=== PATIENT | male | born 1950 ===

== ENCOUNTER 2017-01-20 11:51 | Emergency (ER) | payer OTHER ==
[2017-01-20 12:02] VITALS: BP 150/88; PULSE 87; RESP 18; TEMP 98.5
--- NOTE | 2017-01-20 12:30 | ED ---
Skin/Abscess/FB HPI - General Chief complaint: Skin/Abscess/Foreign Body Stated complaint: poss spider bite left arm Time Seen by Provider: 01/20/17 12:13 Source: patient, RN notes reviewed Mode of arrival: ambulatory Limitations: no limitations - History of Present Illness Initial comments: 66-year-old male presents to the emergency Department chief complaint of left arm cellulitis. Patient states that he had a small area of infection that he drained himself and now he states some redness to the arm. Patient denies any fever chills cough cold runny nose with this. Patient denies any nausea vomiting. Patient denies any significant health history. Patient states that he had this redness to the arm so he was concerned. Patient denies any history of MRSA or any history of anything like this in the past. Patient states it is not currently having any other symptoms at this time. Patient denies any ALLERGIES to antibiotics. Patient denies any recent fever, chills, shortness of breath, chest pain, back pain, abdominal pain, nausea vomiting, numbness or tingling, dysuria or hematuria, constipation or diarrhea, headaches or visual changes, or any other current symptoms. - Related Data Home Medications Medication Instructions Recorded Confirmed Aspirin 81 mg PO DAILY 05/27/14 11/26/15 Multivitamin [Men's Multi-Vitamin] 1 each PO DAILY 05/27/14 11/26/15 Previous Rx's Medication Instructions Recorded Hydrocodone/Acetaminophen [[place] 1 each PO Q6HR PRN #20 tab 11/26/15 5-325] Orphenadrine [Norflex] 100 mg PO Q12H #10 tablet.er 11/26/15 predniSONE 50 mg PO DAILY #5 tab 11/26/15 Cephalexin [Keflex] 500 mg PO Q6HR #40 cap 01/20/17 Sulfamethox-Tmp 800-160Mg [Bactrim 2 each PO Q12HR #56 tab 01/20/17 DS 800-160 mg] Allergies Allergy/AdvReac Type Severity Reaction Status Date / Time No Known Allergies Allergy Verified 01/20/17 12:01 Review of Systems ROS Statement: Those systems with pertinent positive or pertinent negative responses have been documented in the HPI. ROS Other: All systems not noted in ROS Statement are negative. Past Medical History Past Medical History: No Reported History History of Any Multi-Drug Resistant Organisms: None Reported Past Surgical History: Back Surgery, Orthopedic Surgery Past Anesthesia/Blood Transfusion Reactions: No Reported Reaction Past Psychological History: No Psychological Hx Reported Smoking Status: Current every day smoker Past Alcohol Use History: Occasional Past Drug Use History: Marijuana - Past Family History Brother(s) Family Medical History: Cancer Sister(s) Family Medical History: Cancer General Exam - General Exam Comments Initial Comments: General: The patient is awake and alert, in no distress, and does not appear acutely ill. Neck: The neck is supple, there is no tenderness. Cardiovascular: There is a regular rate and rhythm. No murmur, rub or gallop is appreciated. Respiratory: Lungs are clear to auscultation, respirations are non-labored, breath sounds are equal. No wheezes, stridor, rales, or rhonchi. Musculoskeletal: Sensation intact with 2+ pulses at the left upper joint. Full range motion of left shoulder left elbow and left wrist. Patient does have a small abrasion to the left elbow with associated erythema and warmth to the left arm. There is some tenderness to palpation over the abrasion. Neurological: CN II-XII intact, There are no obvious motor or sensory deficits. Coordination appears grossly intact. Speech is normal. Skin: Skin is warm and dry and no rashes or lesions are noted. Psychiatric: Normal mood and affect. Limitations: no limitations Course Vital Signs 01/20/17 11:59 Temperature 98.5 F Pulse Rate 87 Respiratory 18 Rate Blood Pressure 150/88 O2 Sat by Pulse 97 Oximetry Medical Decision Making - Medical Decision Making 66-year-old male presents for what appears to be a left arm cellulitis. This tenderness does not appear to be area for drainage. At this time we did discuss with the patient that we could keep him for IV antibiotics and IV medications and see how his infection improves he however states he like to try on antibiotics at that he has not been on anything. He has no fever at this time vital signs are stable. He has not been on any outpatient antibiotics. We will give a shot of Ancef and start him on Keflex and Bactrim for home. We did discuss return parameters were discussed follow-up and all questions. Patient stated he understood and he is in agreement with this plan. At this time he will be discharged home. Disposition Clinical Impression: Left arm cellulitis Disposition: HOME SELF-CARE Condition: Stable Instructions: Cellulitis (ED) Additional Instructions: Please use medication as discussed. Please follow up with family doctor if symptoms have not improved over the next two days. Please return to the emergency room if your symptoms increase or worsen or for any other concerns. Prescriptions: Cephalexin [Keflex] 500 mg PO Q6HR #40 cap Sulfamethox-Tmp 800-160Mg [Bactrim DS 800-160 mg] 2 each PO Q12HR #56 tab Referrals: Yisel Lechuga MD [Primary Care Provider] - 1-2 days Time of Disposition: 12:30
[2017-01-20] MEDS ORDERED: ceFAZolin 1,000 MG VIAL IM STA (12:31)
== END 2017-01-20 12:52 | disposition home or self-care (01) ==
LOC: EC 11:51
DX: L03.114 Cellulitis of left upper limb (principal); F17.200 Nicotine dependence, unspecified, uncomplicated; Z79.82 Long term (current) use of aspirin; Z79.899 Other long term (current) drug therapy
CPT/HCPCS: 99283; 96372; J0690

== ENCOUNTER 2018-01-29 09:13 | Inpatient (IN) | payer MEDICARE, OTHER ==
[~2018-01-29 09:13] MED LIST: ATORVASTATIN 80 MG TAB ONE
[2018-01-29] MEDS ORDERED: NITROGLYCERIN SL TABS 0.4 MG TAB SUBLINGUAL STA (09:26)
[2018-01-29] MEDS ORDERED: SODIUM CHLORIDE 0.9% 1,000 ML IV STA ×3 (09:28→09:29)
[2018-01-29] MEDS ORDERED: ASPIRIN 81 MG PO STA ×2 (09:28→09:29)
[2018-01-29] MEDS ORDERED: NITROGLYCERIN SL TABS 0.4 MG TAB SUBLINGUAL PRN ×3 (09:28→10:30)
[2018-01-29] MEDS ORDERED: HEPARIN SODIUM,PORCINE 5,000 UNIT/ML 1 ML VIAL IV PRN (09:28)
[2018-01-29] MEDS ORDERED: HEPARIN SODIUM,PORCINE 5,000 UNIT/ML 1 ML VIAL IV ONE (09:28)
[2018-01-29] MEDS ORDERED: LIDOCAINE 1% INJ 10MG/ML (20 ML MDV) ONE (09:33)
--- NOTE | 2018-01-29 09:33 | ED ---
General Adult HPI - General Chief complaint: Chest Pain Stated complaint: Chest pain Time Seen by Provider: 01/29/18 09:28 Source: patient, RN notes reviewed, old records reviewed Mode of arrival: wheelchair Limitations: no limitations - History of Present Illness Initial comments: This is a 67-year-old male today presented ER for evaluation regarding chest pain patient does have history of smoking high blood pressure. No recent travel history, no recent sick contacts. Patient denies modifying factors for chest pain. - Related Data Home Medications Medication Instructions Recorded Confirmed Aspirin 81 mg PO DAILY 05/27/14 01/29/18 Multivitamin [Men's Multi-Vitamin] 1 tab PO DAILY 05/27/14 01/29/18 Allergies Allergy/AdvReac Type Severity Reaction Status Date / Time No Known Allergies Allergy Verified 01/29/18 09:18 Review of Systems ROS Statement: Those systems with pertinent positive or pertinent negative responses have been documented in the HPI. ROS Other: All systems not noted in ROS Statement are negative. Past Medical History Past Medical History: No Reported History History of Any Multi-Drug Resistant Organisms: None Reported Past Surgical History: Back Surgery, Orthopedic Surgery Past Anesthesia/Blood Transfusion Reactions: No Reported Reaction Past Psychological History: No Psychological Hx Reported Smoking Status: Current every day smoker Past Alcohol Use History: Occasional Past Drug Use History: Marijuana - Past Family History Brother(s) Family Medical History: Cancer Sister(s) Family Medical History: Cancer Son(s) Additional Family Medical History / Comment(s): Patient has one son with ALLERGIES. No daughters. General Exam Limitations: no limitations General appearance: alert, in no apparent distress, anxious Head exam: Present: atraumatic, normocephalic, normal inspection Eye exam: Present: normal appearance, PERRL, EOMI. Absent: scleral icterus, conjunctival injection, periorbital swelling ENT exam: Present: normal exam, mucous membranes moist Neck exam: Present: normal inspection. Absent: tenderness, meningismus, lymphadenopathy Respiratory exam: Present: normal lung sounds bilaterally. Absent: respiratory distress, wheezes, rales, rhonchi, stridor Cardiovascular Exam: Present: regular rate, normal rhythm, normal heart sounds. Absent: systolic murmur, diastolic murmur, rubs, gallop, clicks GI/Abdominal exam: Present: soft, normal bowel sounds. Absent: distended, tenderness, guarding, rebound, rigid Extremities exam: Present: normal inspection, full ROM, normal capillary refill. Absent: tenderness, pedal edema, joint swelling, calf tenderness Back exam: Present: normal inspection Neurological exam: Present: alert, oriented X3, CN II-XII intact Psychiatric exam: Present: normal affect, normal mood Skin exam: Present: warm, dry, intact, normal color. Absent: rash Course Vital Signs 01/29/18 01/29/18 01/29/18 09:16 09:33 09:37 Temperature 97.8 F Pulse Rate 68 97 87 Respiratory 18 18 18 Rate Blood Pressure 179/98 172/106 197/106 O2 Sat by Pulse 99 98 Oximetry - Reevaluation(s) Reevaluation #1: STEMI paged on patient arrival to emergency room. Cardiology and cath team is evaluating patient in emergency room EKG Findings - EKG Comments: EKG Findings:: EKG shows ST elevated AR, rate of 67, NM 202, QRS 146, QTc 429 Medical Decision Making - Medical Decision Making 67 male the ER for evaluation. Patient today for positive ST elevated AR, taken to [facility] upon presentation to emergency room. - Lab Data Result diagrams: 01/30/18 06:11 01/30/18 06:11 Lab Results 01/29/18 01/29/18 01/29/18 Range/Units 09:24 09:24 09:24 WBC 10.6 (3.8-10.6) k/uL RBC 5.50 (4.30-5.90) m/uL Hgb 17.0 (13.0-17.5) gm/dL Hct 51.8 (39.0-53.0) % MCV 94.3 (80.0-100.0) fL MCH 31.0 (25.0-35.0) pg MCHC 32.9 (31.0-37.0) g/dL RDW 14.2 (11.5-15.5) % Plt Count 246 (150-450) k/uL Neutrophils % 57 % Lymphocytes % 29 % Monocytes % 6 % Eosinophils % 5 % Basophils % 1 % Neutrophils # 6.0 (1.3-7.7) k/uL Lymphocytes # 3.0 (1.0-4.8) k/uL Monocytes # 0.6 (0-1.0) k/uL Eosinophils # 0.5 (0-0.7) k/uL Basophils # 0.1 (0-0.2) k/uL PT 9.7 (9.0-12.0) sec INR 1.0 (<1.2) APTT 22.0 (22.0-30.0) sec Sodium 141 (137-145) mmol/L Potassium 4.3 (3.5-5.1) mmol/L Chloride 107 (98-107) mmol/L Carbon Dioxide 23 (22-30) mmol/L Anion Gap 11 mmol/L BUN 16 (9-20) mg/dL Creatinine 0.95 (0.66-1.25) mg/dL Est GFR (CKD-EPI)AfAm >90 (>60 ml/min/1.73 sqM) Est GFR (CKD-EPI)NonAf 84 (>60 ml/min/1.73 sqM) Glucose 125 H (74-99) mg/dL Calcium 9.8 (8.4-10.2) mg/dL Total Bilirubin 0.4 (0.2-1.3) mg/dL AST 23 (17-59) U/L ALT 31 (21-72) U/L Alkaline Phosphatase 72 (38-126) U/L Total Creatine Kinase (55-170) U/L CK-MB (CK-2) (0.0-2.4) ng/mL CK-MB (CK-2) Rel Index Troponin I (0.000-0.034) ng/mL Total Protein 7.2 (6.3-8.2) g/dL Albumin 4.4 (3.5-5.0) g/dL 01/29/18 Range/Units 09:24 WBC (3.8-10.6) k/uL RBC (4.30-5.90) m/uL Hgb (13.0-17.5) gm/dL Hct (39.0-53.0) % MCV (80.0-100.0) fL MCH (25.0-35.0) pg MCHC (31.0-37.0) g/dL RDW (11.5-15.5) % Plt Count (150-450) k/uL Neutrophils % % Lymphocytes % % Monocytes % % Eosinophils % % Basophils % % Neutrophils # (1.3-7.7) k/uL Lymphocytes # (1.0-4.8) k/uL Monocytes # (0-1.0) k/uL Eosinophils # (0-0.7) k/uL Basophils # (0-0.2) k/uL PT (9.0-12.0) sec INR (<1.2) APTT (22.0-30.0) sec Sodium (137-145) mmol/L Potassium (3.5-5.1) mmol/L Chloride (98-107) mmol/L Carbon Dioxide (22-30) mmol/L Anion Gap mmol/L BUN (9-20) mg/dL Creatinine (0.66-1.25) mg/dL Est GFR (CKD-EPI)AfAm (>60 ml/min/1.73 sqM) Est GFR (CKD-EPI)NonAf (>60 ml/min/1.73 sqM) Glucose (74-99) mg/dL Calcium (8.4-10.2) mg/dL Total Bilirubin (0.2-1.3) mg/dL AST (17-59) U/L ALT (21-72) U/L Alkaline Phosphatase (38-126) U/L Total Creatine Kinase 101 (55-170) U/L CK-MB (CK-2) 2.2 (0.0-2.4) ng/mL CK-MB (CK-2) Rel Index 2.2 Troponin I 0.031 (0.000-0.034) ng/mL Total Protein (6.3-8.2) g/dL Albumin (3.5-5.0) g/dL - Radiology Data Radiology results: report reviewed (Chest x-rays negative for acute disease), image reviewed Critical Care Time Critical Care Time: Yes Total Critical Care Time: 31 Disposition Clinical Impression: ST elevation myocardial infarction (STEMI) Disposition: ADMITTED IP TO THIS HOSP Condition: Serious Is patient prescribed a controlled substance at d/c from ED?: No
[2018-01-29] MEDS: HEPARIN SOD,PORK IN 0.45% NACL 25,000 UNIT in 0.45% NACL 1 500ML.BAG IV SCH (09:38)
[2018-01-29] MEDS ORDERED: VERAPAMIL 2.5 MG/ML 2 ML AMP ONE (09:40)
[2018-01-29] MEDS ORDERED: MIDAZOLAM 2 MG/2 ML VIAL ONE (09:40)
[2018-01-29] MEDS ORDERED: HEPARIN SODIUM 1,000 UN/ML (10ML VL) ONE (09:40)
--- NOTE | 2018-01-29 09:44 | XR ---
EXAMINATION TYPE: XR chest 1V portable DATE OF EXAM: 01/29/2018 COMPARISON: NONE HISTORY: Myocardial infarction, chest pain TECHNIQUE: Single frontal view of the chest is obtained. FINDINGS: Patient is rotated, technique somewhat apical lordotic, and there are overlying leads. Asce nding aorta appears prominently possibly due to technique. There is no focal air space opacity, pleur al effusion, or pneumothorax seen. The cardiac silhouette size is within normal limits. The osseou s structures are intact. IMPRESSION: Above findings may be at least in part technical, consider follow-up PA and lateral ches t x-ray when patient is clinically stable. No definite acute abnormality.
[2018-01-29 09:48] LABS: Basophils # (A) 0.1 k/uL (0-0.2); Basophils % (A) 1 %; Eosinophils # (A) 0.5 k/uL (0-0.7); Eosinophils % (A) 5 %; HCT 51.8 % (39.0-53.0); Lymphocytes % (A) 29 %; MCHC 32.9 g/dL (31.0-37.0); MCV 94.3 fL (80.0-100.0); Mean Platelet Volume 7.7; Monocytes # (A) 0.6 k/uL (0-1.0); Monocytes % (A) 6 %; Neutrophils % (A) 57 %; Platelet Count 246 k/uL (150-450); RDW 14.2 % (11.5-15.5); WBC 10.6 k/uL (3.8-10.6)
[2018-01-29] MEDS ORDERED: LIDOCAINE 1% (PF) 10MG/ML VIAL SQ ONE (09:54)
[2018-01-29] MEDS ORDERED: MIDAZOLAM 2 MG/2 ML VIAL IVP ONE (09:55)
[2018-01-29] MEDS ORDERED: SODIUM CHLORIDE 0.9% 1,000 ML IV ONE (09:56)
[2018-01-29] MEDS: VERAPAMIL SYRINGE (5 MG/10 ML) INTRAARTER ONE ×2 (09:58→10:19)
[2018-01-29 10:00] LABS: ALT 31 U/L (21-72); AST 23 U/L (17-59); Albumin 4.4 g/dL (3.5-5.0); Alkaline Phosphatase 72 U/L (38-126); Anion Gap 11 mmol/L; Blood Urea Nitrogen 16 mg/dL (9-20); Calcium 9.8 mg/dL (8.4-10.2); Carbon Dioxide 23 mmol/L (22-30); Chloride 107 mmol/L (98-107); Glucose 125 mg/dL (74-99); Potassium 4.3 mmol/L (3.5-5.1); Sodium 141 mmol/L (137-145); Total Bilirubin 0.4 mg/dL (0.2-1.3); Total Protein 7.2 g/dL (6.3-8.2)
[2018-01-29] MEDS ORDERED: BIVALIRUDIN 250 MG in SODIUM CHLORIDE 0.9% 50 ML IV ONE (10:04)
[2018-01-29] MEDS ORDERED: BIVALIRUDIN BOLUS 250 MG/50 ML IV ONE (10:04)
[2018-01-29 10:07] LABS: Prothrombin Time 9.7 sec (9.0-12.0)
[2018-01-29] MEDS: NITROGLYCERIN 1000MCG/10ML SYRINGE INTRACORON ONE ×2 (10:12→10:18)
[2018-01-29] MEDS ORDERED: CLOPIDOGREL 75 MG TAB ONE (10:15)
[2018-01-29] MEDS ORDERED: CLOPIDOGREL 75 MG TAB PO ONE (10:19)
[2018-01-29] MEDS ORDERED: IOPAMIDOL-370 125ML BTL INJ ONE (10:20)
[2018-01-29] MEDS ORDERED: SODIUM CHLORIDE 0.9% 1,000 ML IV SCH (10:30)
[2018-01-29] MEDS ORDERED: RX INFO: IV CONTRAST WAS GIVEN 1 EACH MISC MISCELLANE PRN (10:30)
[2018-01-29] MEDS ORDERED: MAG HYDROX/AL HYDROX/SIMETH 30 ML CUP PO PRN (10:30)
[2018-01-29] MEDS ORDERED: ATROPINE SULFATE 0.1 MG/ML 10ML SYRINGE IV PRN (10:30)
[2018-01-29] MEDS ORDERED: ZOLPIDEM 5 MG TAB PO PRN (10:30)
[2018-01-29 10:31] LABS: Creatine Kinase MB 2.2 ng/mL (0.0-2.4); Troponin I 0.031 ng/mL (0.000-0.034)
--- NOTE | 2018-01-29 10:42 | P.CRDCN ---
History of Present Illness Consult date: 01/29/18 Chief complaint: chest discomfort History of present illness: This is a pleasant 67-year-old gentleman with no significant past medical history of diabetes or hypertension or dyslipidemia but significant history of smoking presented to the emergency room here at [facility] complaining of chest discomfort. 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 The discomfort was severe enough and the patient drove himself to the emergency room. In the ER the patient was diagnosed with acute anterior ST patient myocardial infarction. Subsequently he was taken emergently to the cardiac labeler where he underwent a heart catheterization and was found to have a plaque rupture involving the mid LAD with a lesion appears to be in the range of 80%. The patient underwent successful stenting of the LAD using a drug -eluting stent with a good angiographic results and without any complication from the procedure was performed from the right radial artery. By the end of the procedure the patient was pain-free. He did have some reperfusion changes throughout the procedure but he was maintaining normal sinus mechanism. In terms of past medical history the patient does not have any hypertension, dyslipidemia, or diabetes. He did undergo back surgery in the past. No other lung or cardiac surgeries before. The patient does to smoke about one pack of cigarettes every day. Past Medical History Past Medical History: No Reported History History of Any Multi-Drug Resistant Organisms: None Reported Past Surgical History: Back Surgery, Orthopedic Surgery Past Anesthesia/Blood Transfusion Reactions: No Reported Reaction Past Psychological History: No Psychological Hx Reported Smoking Status: Current every day smoker Past Alcohol Use History: Occasional Past Drug Use History: Marijuana - Past Family History Brother(s) Family Medical History: Cancer Sister(s) Family Medical History: Cancer Medications and Allergies Home Medications Medication Instructions Recorded Confirmed Type Aspirin 81 mg PO DAILY 05/27/14 11/26/15 History Multivitamin [Men's Multi-Vitamin] 1 each PO DAILY 05/27/14 11/26/15 History Hydrocodone/Acetaminophen [[place] 1 each PO Q6HR PRN #20 tab 11/26/15 Rx 5-325] Orphenadrine [Norflex] 100 mg PO Q12H #10 tablet.er 11/26/15 Rx predniSONE 50 mg PO DAILY #5 tab 11/26/15 Rx Cephalexin [Keflex] 500 mg PO Q6HR #40 cap 01/20/17 Rx Sulfamethox-Tmp 800-160Mg [Bactrim 2 each PO Q12HR #56 tab 01/20/17 Rx DS 800-160 mg] Allergies Allergy/AdvReac Type Severity Reaction Status Date / Time No Known Allergies Allergy Verified 01/29/18 09:18 Physical Exam Vitals: Vital Signs Temp Pulse Resp BP Pulse Ox 01/29/18 09:37 87 18 197/106 01/29/18 09:33 97 18 172/106 98 01/29/18 09:16 97.8 F 68 18 179/98 99 Intake and Output 01/28/18 01/29/18 01/29/18 22:59 06:59 14:59 Intake Total 150 Balance 150 Intake: IV 150 Other: Weight 78.018 kg - Constitutional General appearance: no acute distress - Respiratory Respiratory: bilateral: CTA - Cardiovascular Rhythm: regular Heart sounds: normal: S1, S2 Results 01/29/18 09:24 01/29/18 09:24 Cardiac Enzymes 01/29/18 01/29/18 Range/Units 09:24 09:24 AST 23 (17-59) U/L CK-MB (CK-2) 2.2 (0.0-2.4) ng/mL Troponin I 0.031 (0.000-0.034) ng/mL Coagulation 01/29/18 Range/Units 09:24 PT 9.7 (9.0-12.0) sec APTT 22.0 (22.0-30.0) sec CBC 01/29/18 Range/Units 09:24 WBC 10.6 (3.8-10.6) k/uL RBC 5.50 (4.30-5.90) m/uL Hgb 17.0 (13.0-17.5) gm/dL Hct 51.8 (39.0-53.0) % Plt Count 246 (150-450) k/uL Comprehensive Metabolic Panel 01/29/18 Range/Units 09:24 Sodium 141 (137-145) mmol/L Potassium 4.3 (3.5-5.1) mmol/L Chloride 107 (98-107) mmol/L Carbon Dioxide 23 (22-30) mmol/L BUN 16 (9-20) mg/dL Creatinine 0.95 (0.66-1.25) mg/dL Glucose 125 H (74-99) mg/dL Calcium 9.8 (8.4-10.2) mg/dL AST 23 (17-59) U/L ALT 31 (21-72) U/L Alkaline Phosphatase 72 (38-126) U/L Total Protein 7.2 (6.3-8.2) g/dL Albumin 4.4 (3.5-5.0) g/dL Current Medications Generic Name Dose Route Start Last Admin Trade Name Freq PRN Reason Stop Dose Admin Al Hydroxide/Mg Hydroxide 30 ml 01/29/18 10:30 Maalox PO Q4HR PRN Heartburn Aspirin 325 mg 01/30/18 09:00 Aspirin PO DAILY [facility] Aspirin 325 mg 01/30/18 09:00 Aspirin PO DAILY [facility] Atorvastatin Calcium 80 mg 01/30/18 09:00 Lipitor PO DAILY [facility] Atropine Sulfate 0.5 mg 01/29/18 10:30 Atropine IV ONCE PRN Symptomatic Bradycardia Clopidogrel Bisulfate 75 mg 01/30/18 10:31 Plavix PO DAILY [facility] Heparin Sodium (Porcine) 0 unit 01/29/18 09:28 Heparin IV Q6HR PRN Low PTT Protocol Heparin Sodium/Sodium Chloride 500 mls @ 18.72 mls/hr 01/29/18 09:30 09:38 25,000 unit/ Sodium Chloride IV 12 units/kg/hr .Q24H MONTSE 18.72 mls/hr Administration Protocol 12 UNITS/KG/HR Sodium Chloride 1,000 mls @ 100 mls/hr 01/29/18 09:28 Saline 0.9% IV 01/29/18 19:27 .Q10H STA Sodium Chloride 1,000 mls @ 100 mls/hr 01/29/18 10:30 Saline 0.9% IV 01/29/18 16:31 .Q10H [facility] Lisinopril 2.5 mg 01/30/18 09:00 Zestril PO DAILY [facility] Metoprolol Tartrate 25 mg 01/29/18 21:00 Lopressor PO BID [facility] Metoprolol Tartrate 25 mg 01/29/18 21:00 Lopressor PO BID [facility] Miscellaneous Information 1 each 01/29/18 10:30 Rx Info: Iv Contrast Was Given MISCELLANE 01/31/18 10:30 DAILY PRN Per Protocol Nitroglycerin 0.4 mg 01/29/18 09:28 Nitrostat SUBLINGUAL Q5M PRN Chest Pain Nitroglycerin 0.4 mg 01/29/18 10:30 Nitrostat SUBLINGUAL Q5M PRN Chest Pain Zolpidem Tartrate 5 mg 01/29/18 10:30 Ambien PO HS PRN Insomnia Intake and Output 01/28/18 01/29/18 01/29/18 22:59 06:59 14:59 Intake Total 150 Balance 150 Intake: IV 150 Other: Weight 78.018 kg Patient Weight 01/30/18 06:59 Weight 78.018 kg 01/29/18 09:24 01/29/18 09:24 Assessment and Plan Assessment: Assessment #[address] patient myocardial infarction. #2 status post a stenting of the LAD using drug-eluting stent #3 significant history of smoking Plan #1 dual antiplatelet therapy #2 high intensity statin #3 anti-ischemic medication #4 echocardiogram was Doppler #5 follow-up with the patient. Thank you for allowing us participate in the patient's care and we'll continue following up with him
--- NOTE | 2018-01-29 11:18 | LTR ---
January 29, 2018 Re: Rogelio Melara Dear Dr. Lechuga. Mr. Rogelio Melara presented to [facility] with chest discomfort and was diagnosed with acute anterior ST-elevation myocardial infarction. He underwent an emergent heart catheterization and was found to have a plaque rupture involving the mid LAD with a lesion around 80% to 90%. He underwent successful stenting of the mid LAD with good angiographic results and without any complication. I want to thank you for allowing me to participate in his care and please do not hesitate to call if you have any question or concern. Sincerely, Lamberto Mahoney MD MMLAURAL / DINAN: [id number] /
--- NOTE | 2018-01-29 11:30 | CC ---
CARDIAC CATHETERIZATION REPORT DATE OF SERVICE: 01/29/2018 PERFORMING PHYSICIAN: Lamberto Mahoney MD, [employer]. PROCEDURE PERFORMED: 1. Selective right and left coronary angiogram. 2. Left heart catheterization. 3. Successful stenting of the mid LAD using 2.5 x 18 mm Xience BRIDGETT with good angiographic results. SEDATION: Moderate with sedation length of 28 minutes. Door to balloon was 58 minutes. PROCEDURE DESCRIPTION: After obtaining an informed consent, the patient was brought to cardiac laborer powerhouse. The right radial artery was cannulated using micropuncture technique, and the micropuncture wire passed easily, then I placed a 6-Tamazight sheath in the right radial artery. After that, I did start anticoagulation with Angiomax. I did selective right and left coronary angiogram using JR4 and JL3.5 catheters. Left heart catheterization was performed using JR4 catheter which flipped into the LV and then I did pullback across the aortic valve. After that, I did intervene on the LAD. Please see a separate paragraph for that. SELECTIVE CORONARY ANGIOGRAM: 1. The RCA is a large caliber vessel and it is a dominant vessel. The RCA has mild disease only in the midportion. It distally bifurcates into PDA and branches, both are angiographically normal. 2. The left main has mild disease only. It bifurcates into the circumflex and left anterior descending artery. 3. The left circumflex is a large caliber vessel and it is a nondominant vessel. The proximal circumflex has mild disease only. The mid circumflex appeared to have mild disease only and gives rise into a large OM branch which has mild disease in the proximal portion and the circumflex continue after that as a small-caliber vessel in the AV groove. 4. The LAD: The proximal LAD is angiographically normal and gives rise into a large diagonal branch which appeared to have mild disease only. The mid LAD by the bifurcation of second diagonal branch has a lesion, appeared to be in the range of 80% to 90%. It seems that there is a plaque rupture and thrombus formation. The LAD distally appeared to be angiographically normal. HEMODYNAMICS: The left ventricular end-diastolic pressure was about 12 mmHg and no significant gradient was seen across the aortic valve. PCI of the LAD anticoagulation was initiated using Angiomax. Subsequently, I did engage the left main using JL3.5 guide. A whisper wire was used to wire the LAD. After that, I did PTCA ballooning of the LAD in the midportion using 2.0 x 12 mm balloon before I deployed 2.5 x 18 mm Xience BRIDGETT where the stent was positioned under fluoroscopy guidance and deployed under its nominal pressure. The following angiogram showed good angiographic results. The procedure was completed without any complication. CONCLUSION: 1. Acute anterior ST-elevation myocardial infarction. 2. Mild disease involving the right coronary artery. 3. Mild disease involving the left main coronary artery. 4. Mild disease involving the left circumflex coronary system. 5. Plaque rupture and thrombus formation involving the mid LAD with a lesion about 80- 90%. 6. Successful stenting of the LAD as described above. POSTPROCEDURE MANAGEMENT: 1. Dual anti-platelet therapy. 2. Risk factors modifications. 3. Obtain an echocardiogram with Doppler. 4. Follow up with the patient. MAGGIE / DINAN: [id number] /
--- NOTE | 2018-01-29 13:30 | P.HPIM ---
History of Present Illness H&P Date: 01/29/18 Chief Complaint: Chest pain This is a 67-year-old male patient who has been a patient of Dr. Martines in the past but most recently went to the clinic for care. He has no significant past medical history except for tobacco use and dependence. Patient states that he woke up and shortly after that developed chest pain that was pressure across his chest along with nausea vomiting and shortness of breath. He states he got in the car and drove himself here but had to stop for gas and was vomiting at the gas station. He came in to [facility] emergency [facility] for evaluation was found to have an acute anterior ST elevated myocardial infarction. He subsequently went for heart catheterization with Dr. jaramillo that showed plaque rupture in the mid LAD and is status post stent placement. Echocardiogram is pending. Patient has been started on aspirin, Lipitor, Plavix, lisinopril and Lopressor. Patient is seen in the extended care unit awaiting a bed in the ICU. Review of Systems All systems: negative Constitutional: Denies chills, Denies fever, Denies poor appetite, Denies weight loss Eyes: denies blurred vision, denies pain Ears, nose, mouth and throat: Denies headache, Denies sore throat Cardiovascular: Reports chest pain, Reports shortness of breath, Denies edema, Denies leg edema, Denies lightheadedness, Denies syncope Respiratory: Denies cough, Denies cough with sputum, Denies dyspnea, Denies excessive sputum, Denies hemoptysis, Denies home oxygen, Denies wheezing Gastrointestinal: Reports nausea, Reports vomiting, Denies abdominal pain, Denies diarrhea Genitourinary: Denies dysuria Musculoskeletal: Denies myalgias Integumentary: Denies pruritus, Denies rash Neurological: Denies numbness, Denies weakness Psychiatric: Denies anxiety, Denies depression Endocrine: Denies fatigue, Denies weight change Past Medical History Past Medical History: No Reported History History of Any Multi-Drug Resistant Organisms: None Reported Past Surgical History: Back Surgery, Orthopedic Surgery Additional Past Surgical History / Comment(s): Heart catheterization 01/29/2018 status post stenting of the LAD Past Anesthesia/Blood Transfusion Reactions: No Reported Reaction Past Psychological History: No Psychological Hx Reported Smoking Status: Current every day smoker Past Alcohol Use History: Occasional Additional Past Alcohol Use History / Comment(s): Patient is a smoker one pack per day for more than 30 years. He smokes marijuana occasionally. He denies any alcohol abuse. No other street drug use. He is retired but is very active doing woodwork and he cares for his own lawn. Past Drug Use History: Marijuana - Past Family History Brother(s) Family Medical History: Cancer Additional Family Medical History / Comment(s): She has 2 brothers and one has history of testicular cancer. One has had back surgery. Sister(s) Family Medical History: Cancer Additional Family Medical History / Comment(s): Patient has 1 sister with no major medical problems. Son(s) Additional Family Medical History / Comment(s): Patient has one son with ALLERGIES. No daughters. Medications and Allergies Home Medications Medication Instructions Recorded Confirmed Type Aspirin 81 mg PO DAILY 05/27/14 01/29/18 History Multivitamin [Men's Multi-Vitamin] 1 tab PO DAILY 05/27/14 01/29/18 History Allergies Allergy/AdvReac Type Severity Reaction Status Date / Time No Known Allergies Allergy Verified 01/29/18 09:18 Physical Exam Vitals: Vital Signs Temp Pulse Resp BP BP Pulse Ox 01/29/18 12:43 16 146/83 98 01/29/18 11:15 141/82 01/29/18 11:00 142/82 01/29/18 10:45 16 141/86 01/29/18 10:44 16 148/87 98 01/29/18 09:37 87 18 197/106 01/29/18 09:33 97 18 172/106 98 01/29/18 09:16 97.8 F 68 18 179/98 99 Intake and Output 01/28/18 01/29/18 01/29/18 22:59 06:59 14:59 Intake Total 165 Balance 165 Intake: IV 165 Other: Weight 78.018 kg Gen: This is a 67-year-old male. He is on the stretcher and appears to be comfortable and in no acute distress. Patient currently denies any chest pain. HEENT: Head is atraumatic, normocephalic. Pupils equal, round. Sclerae is anicteric. Conjunctiva pink. Mucous members of the mouth are somewhat dry. NECK: Supple. No JVD. No lymphadenopathy. No thyromegaly. LUNGS: Clear to auscultation. No wheezes or rhonchi. No intercostal retractions. HEART: Regular rate and rhythm. No murmur. ABDOMEN: Soft. Bowel sounds are present. No masses. No tenderness. EXTREMITIES: No pedal edema. No calf tenderness. Dorsalis pedis is +2 bilaterally. NEUROLOGICAL: Patient is awake, alert and oriented x3. Cranial nerves 2 through 12 are grossly intact. Results CBC & Chem 7: 01/29/18 09:24 01/29/18 09:24 Labs: Abnormal Lab Results - Last 24 Hours (Table) 01/29/18 Range/Units 09:24 Glucose 125 H (74-99) mg/dL Thrombosis Risk Factor Assmnt - DVT/VTE Prophylaxis DVT/VTE Prophylaxis: Pharmacologic Prophylaxis ordered Assessment and Plan Plan: 1. Acute anterior wall ST elevated myocardial infarction status post stenting of the LAD. Cardiology consult appreciated. Continue aspirin, Lipitor, Plavix , lisinopril, Lopressor. Patient to be transferred to the intensive care unit. 2. History of previous back surgery, stable. 3. Tobacco use and dependence. Patient is planning to quit smoking. 4. Occasional marijuana use, stable. 5. Hypertension previously undiagnosed. Patient started on lisinopril and Lopressor. 6. Hyperlipidemia. Patient started on statin. 7. DVT and GI prophylaxis prophylaxis. Patient will be admitted to the hospital for a minimum of 2 night stay. Discharge plan: Return home Impression and plan of care have been directed as dictated by the signing physician. Gissel Blackburn nurse practitioner acting as scribe for signing physician.
[2018-01-29 16:11] LABS: Creatine Kinase MB 24.1 ng/mL (0.0-2.4); Troponin I 3.57 ng/mL (0.000-0.034)
[2018-01-29] MEDS: METOPROLOL TARTRATE 25 MG TAB PO SCH (19:46)
[2018-01-29 20:34] VITALS: BMI 26.9
[2018-01-29] MEDS ORDERED: METOPROLOL TARTRATE 25 MG TAB PO SCH (21:00)
[2018-01-30 06:34] LABS: Basophils # (A) 0.1 k/uL (0-0.2); Basophils % (A) 1 %; Eosinophils # (A) 0.5 k/uL (0-0.7); Eosinophils % (A) 5 %; HCT 49.1 % (39.0-53.0); Lymphocytes # (A) 2.7 k/uL (1.0-4.8); Lymphocytes % (A) 23 %; MCH 30.5 pg (25.0-35.0); MCHC 32.6 g/dL (31.0-37.0); MCV 93.5 fL (80.0-100.0); Mean Platelet Volume 7.9; Monocytes # (A) 0.5 k/uL (0-1.0); Monocytes % (A) 5 %; Neutrophils # (A) 7.7 k/uL (1.3-7.7); Neutrophils % (A) 66 %; Platelet Count 213 k/uL (150-450); RBC 5.25 m/uL (4.30-5.90); RDW 14.2 % (11.5-15.5); WBC 11.7 k/uL (3.8-10.6)
[2018-01-30 06:40] LABS: Partial Thromboplastin Time 23.7 sec (22.0-30.0); Prothrombin Time 9.9 sec (9.0-12.0)
[2018-01-30 06:48] LABS: ALT 32 U/L (21-72); AST 46 U/L (17-59); Albumin 3.6 g/dL (3.5-5.0); Alkaline Phosphatase 58 U/L (38-126); Anion Gap 4 mmol/L; Blood Urea Nitrogen 11 mg/dL (9-20); Calcium 9.3 mg/dL (8.4-10.2); Carbon Dioxide 26 mmol/L (22-30); Chloride 110 mmol/L (98-107); Cholesterol 214 mg/dL (<200); Glucose 96 mg/dL (74-99); HDL Cholesterol 49 mg/dL (40-60); LDL Cholesterol,Calculated 133 mg/dL (0-99); Lipase 59 U/L (23-300); Magnesium 1.8 mg/dL (1.6-2.3); Potassium 4.4 mmol/L (3.5-5.1); Sodium 140 mmol/L (137-145); Total Bilirubin 0.6 mg/dL (0.2-1.3); Total Protein 6.1 g/dL (6.3-8.2); Triglycerides 159 mg/dL (<150)
[2018-01-30] MEDS: CLOPIDOGREL 75 MG TAB PO SCH (08:12)
[2018-01-30] MEDS: ASPIRIN 325 MG TAB PO SCH (08:12)
[2018-01-30] MEDS: ATORVASTATIN 80 MG TAB PO SCH (08:14)
[2018-01-30] MEDS: METOPROLOL TARTRATE 25 MG TAB PO SCH ×2 (08:15→20:27)
[2018-01-30] MEDS: LISINOPRIL 2.5 MG TAB PO SCH (08:15)
[2018-01-30] MEDS: HEPARIN SOD,PORK IN 0.45% NACL 25,000 UNIT in 0.45% NACL 1 500ML.BAG IV SCH (08:20)
[2018-01-30] MEDS ORDERED: ASPIRIN 325 MG TAB PO SCH (09:00)
--- NOTE | 2018-01-30 10:22 | ECHOF ---
Referral Reason:STEMI MEASUREMENTS -------- HEIGHT: 170.2 cm WEIGHT: 78.0 kg BP: 148/87 IVSd: 1.4 cm (0.6 - 1.1) LVIDd: 3.2 cm (3.9 - 5.3) LVPWd: 1.3 cm (0.6 - 1.1) IVSs: 1.3 cm LVIDs: 2.0 cm LVPWs: 1.1 cm LAESV Index (A-L): 25.44 ml/m Ao Diam: 3.6 cm (2.0 - 3.7) AV Cusp: 1.4 cm (1.5 - 2.6) LA Diam: 3.0 cm (2.7 - 3.8) MV E Joshua: 0.68 m/s MV DecT: 255 ms MV A Joshua: 0.91 m/s MV E/A Ratio: 0.75 RAP: 5.00 mmHg RVSP: 11.66 mmHg FINDINGS -------- Sinus rhythm. This was a technically adequate study. The left ventricular size is normal. There is mild concentric left ventricular hypertrophy. Overa ll left ventricular systolic function is mildly impaired with, an EF between 45 - 50 %. Apical Hypo kinesis. The right ventricle is normal in size and function. Normal LA size by volume 22+/-6 ml/m2. The right atrium is normal in size. Aortic valve is trileaflet and is mildly thickened. There is no evidence of aortic regurgitation. There is no evidence of aortic stenosis. The mitral valve leaflets are mildly thickened. There is trace to mild mitral regurgitation. Trace tricuspid regurgitation present. Right ventricular systolic pressure is normal at < 35 mmHg. There is no evidence of pulmonary hypertension. The pulmonic valve was not well visualized. The aortic root size is normal. Normal inferior vena cava with normal inspiratory collapse consistent with estimated right atrial pre ssure of 5 mmHg. There is no pericardial effusion. CONCLUSIONS -------- 1. Sinus rhythm. 2. This was a technically adequate study. 3. The left ventricular size is normal. 4. There is mild concentric left ventricular hypertrophy. 5. Overall left ventricular systolic function is mildly impaired with, an EF between 45 - 50 %. 6. Apical Hypokinesis. 7. Normal LA size by volume 22+/-6 ml/m2. 8. Aortic valve is trileaflet and is mildly thickened. 9. The mitral valve leaflets are mildly thickened. 10. There is trace to mild mitral regurgitation. 11. Trace tricuspid regurgitation present. 12. Right ventricular systolic pressure is normal at < 35 mmHg. 13. There is no evidence of pulmonary hypertension. 14. The pulmonic valve was not well visualized. 15. The aortic root size is normal. 16. There is no pericardial effusion. HAND SHOE CUTTER: Robert Lorenzana RDCS
--- NOTE | 2018-01-30 12:36 | P.PN ---
Subjective Progress Note Date: 01/30/18 Principal diagnosis: CAD and status post PCI This is a pleasant 67-year-old gentleman with no significant past medical history of diabetes or hypertension or dyslipidemia but significant history of smoking presented to the emergency room here at [facility] complaining of chest discomfort. 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 The discomfort was severe enough and the patient drove himself to the emergency room. In the ER the patient was diagnosed with acute anterior ST patient myocardial infarction. Subsequently he was taken emergently to the cardiac lab systems analyst where he underwent a heart catheterization and was found to have a plaque rupture involving the mid LAD with a lesion appears to be in the range of 80%. The patient underwent successful stenting of the LAD using a drug -eluting stent with a good angiographic results and without any complication from the procedure was performed from the right radial artery. By the end of the procedure the patient was pain-free. He did have some reperfusion changes throughout the procedure but he was maintaining normal sinus mechanism. On follow-up with the patient today, he denies having any chest pain or discomfort or shortness of breath. He does have good right radial pulse. The echocardiogram revealed mildly impaired LV function with an ejection fraction of 45%.he is on dual antiplatelet therapy along with high intensity statin. Objective - Vital Signs Vital signs: Vital Signs Temp 98.0 F 01/30/18 08:08 Pulse 72 01/30/18 08:08 Resp 16 01/30/18 08:08 BP 133/89 01/30/18 08:08 Pulse Ox 96 01/30/18 09:28 Intake & Output 01/29/18 01/30/18 01/30/18 18:59 06:59 18:59 Intake Total 890 520 240 Balance 890 520 240 Weight 78.018 kg 80.1 kg Intake: IV 890 Sodium Chloride 0.9% 1, 725 000 ml @ 100 mls/hr IV . Q10H [facility] Rx#:[id number] Intake, IV Titration 100 Amount Sodium Chloride 0.9% 1, 100 000 ml @ 100 mls/hr IV . Q10H [facility] Rx#:[id number] Oral 420 240 Other: Voiding Method Toilet Toilet # Voids 1 1 - Constitutional General appearance: Present: no acute distress - Respiratory Respiratory: bilateral: CTA - Cardiovascular Rhythm: regular Heart sounds: normal: S1, S2 - Labs CBC & Chem 7: 01/30/18 06:11 01/30/18 06:11 Labs: Abnormal Lab Results - Last 24 Hours (Table) 01/29/18 01/30/18 01/30/18 Range/Units 15:25 06:11 06:11 WBC 11.7 H (3.8-10.6) k/uL Chloride 110 H (98-107) mmol/L Total Creatine Kinase 331 H (55-170) U/L CK-MB (CK-2) 24.1 H* (0.0-2.4) ng/mL Troponin I 3.570 H* (0.000-0.034) ng/mL Total Protein 6.1 L (6.3-8.2) g/dL Triglycerides 159 H (<150) mg/dL Cholesterol 214 H (<200) mg/dL LDL Cholesterol, Calc 133 H (0-99) mg/dL Assessment and Plan Assessment: Assessment #[address] patient myocardial infarction. #2 status post a stenting of the LAD using drug-eluting stent #3 significant history of smoking Plan #1 dual antiplatelet therapy #2 high intensity statin #3 anti-ischemic medication #4 the echocardiogram was reviewed #5 follow-up with the patient. Thank you for allowing us participate in the patient's care and we'll continue following up with him
--- NOTE | 2018-01-30 12:40 | P.PN ---
Subjective Progress Note Date: 01/30/18 This is a 67-year-old male patient who has been a patient of Dr. Maritnes in the past but most recently went to the clinic for care. He has no significant past medical history except for tobacco use and dependence. Patient states that he woke up and shortly after that developed chest pain that was pressure across his chest along with nausea vomiting and shortness of breath. He states he got in the car and drove himself here but had to stop for gas and was vomiting at the gas station. He came in to [facility] emergency center for evaluation was found to have an acute anterior ST elevated myocardial infarction. He subsequently went for heart catheterization with Dr. jaramillo that showed plaque rupture in the mid LAD and is status post stent placement. Echocardiogram is pending. Patient has been started on aspirin, Lipitor, Plavix, lisinopril and Lopressor. Patient is seen in the extended care unit awaiting a bed in the ICU. 01/30: Echocardiogram reveals EF of 45-50%, mild concentric left ventricular hypertrophy, apical hypokinesia, mild mitral regurgitation, trace tricuspid regurgitation, no pulmonary hypertension. Triglycerides 159, cholesterol 214, LDL 133, HDL 49. Patient states that he has been walking in the hallway without any chest pain, shortness of breath, lightheadedness or dizziness. Objective - Vital Signs Vital signs: Vital Signs Temp 97.2 F L 01/30/18 04:00 Pulse 65 01/30/18 04:00 Resp 16 01/30/18 04:00 BP 140/88 01/30/18 04:00 Pulse Ox 95 01/30/18 08:45 Intake & Output 01/29/18 01/30/18 01/30/18 18:59 06:59 18:59 Intake Total 890 520 Balance 890 520 Weight 78.018 kg 80.1 kg Intake: IV 890 Sodium Chloride 0.9% 1, 725 000 ml @ 100 mls/hr IV . Q10H [facility] Rx#:[id number] Intake, IV Titration 100 Amount Sodium Chloride 0.9% 1, 100 000 ml @ 100 mls/hr IV . Q10H [facility] Rx#:[id number] Oral 420 Other: Voiding Method Toilet # Voids 1 1 - Exam Gen: This is a 67-year-old male. He is on the stretcher and appears to be comfortable and in no acute distress. Patient currently denies any chest pain. HEENT: Head is atraumatic, normocephalic. Pupils equal, round. Sclerae is anicteric. Conjunctiva pink. Mucous members of the mouth are somewhat dry. NECK: Supple. No JVD. No lymphadenopathy. No thyromegaly. LUNGS: Clear to auscultation. No wheezes or rhonchi. No intercostal retractions. HEART: Regular rate and rhythm. No murmur. ABDOMEN: Soft. Bowel sounds are present. No masses. No tenderness. EXTREMITIES: No pedal edema. No calf tenderness. Dorsalis pedis is +2 bilaterally. NEUROLOGICAL: Patient is awake, alert and oriented x3. Cranial nerves 2 through 12 are grossly intact. - Labs CBC & Chem 7: 01/30/18 06:11 01/30/18 06:11 Labs: Abnormal Lab Results - Last 24 Hours (Table) 01/29/18 01/29/18 01/30/18 Range/Units 09:24 15:25 06:11 WBC 11.7 H (3.8-10.6) k/uL Chloride (98-107) mmol/L Glucose 125 H (74-99) mg/dL Total Creatine Kinase 331 H (55-170) U/L CK-MB (CK-2) 24.1 H* (0.0-2.4) ng/mL Troponin I 3.570 H* (0.000-0.034) ng/mL Total Protein (6.3-8.2) g/dL Triglycerides (<150) mg/dL Cholesterol (<200) mg/dL LDL Cholesterol, Calc (0-99) mg/dL 01/30/18 Range/Units 06:11 WBC (3.8-10.6) k/uL Chloride 110 H (98-107) mmol/L Glucose (74-99) mg/dL Total Creatine Kinase (55-170) U/L CK-MB (CK-2) (0.0-2.4) ng/mL Troponin I (0.000-0.034) ng/mL Total Protein 6.1 L (6.3-8.2) g/dL Triglycerides 159 H (<150) mg/dL Cholesterol 214 H (<200) mg/dL LDL Cholesterol, Calc 133 H (0-99) mg/dL Assessment and Plan Plan: 1. Acute anterior wall ST elevated myocardial infarction status post stenting of the LAD. Cardiology consult appreciated. Continue aspirin, Lipitor, Plavix , lisinopril, Lopressor. Echocardiogram as above. Patient is on the selective care unit. 2. History of previous back surgery, stable. 3. Tobacco use and dependence. Patient is planning to quit smoking. 4. Occasional marijuana use, stable. 5. Hypertension previously undiagnosed. Patient started on lisinopril and Lopressor. 6. Hyperlipidemia. Patient started on statin. 7. DVT and GI prophylaxis prophylaxis. Discharge plan: Return home Impression and plan of care have been directed as dictated by the signing physician. Gissel Blackburn nurse practitioner acting as scribe for signing physician.
[2018-01-30] MEDS ORDERED: LORATADINE 10 MG TAB PO PRN (13:18)
[2018-01-30] MEDS: ACETAMINOPHEN TAB 325 MG TAB PO PRN ×2 (13:51→20:27)
[2018-01-30] MEDS: NICOTINE 14MG/24HR PATCH TRANSDERM SCH (13:52)
[2018-01-31] MEDS: METOPROLOL TARTRATE 25 MG TAB PO SCH (09:15)
[2018-01-31] MEDS: ATORVASTATIN 80 MG TAB PO SCH (09:15)
[2018-01-31] MEDS: ASPIRIN 325 MG TAB PO SCH (09:15)
[2018-01-31] MEDS: NICOTINE 14MG/24HR PATCH TRANSDERM SCH (09:15)
[2018-01-31] MEDS: LISINOPRIL 2.5 MG TAB PO SCH (09:15)
[2018-01-31] MEDS: CLOPIDOGREL 75 MG TAB PO SCH (09:16)
[2018-01-31 10:17] VITALS: BP 131/84; PULSE 70; RESP 16; TEMP 98.4
--- NOTE | 2018-01-31 12:18 | P.PN ---
Subjective Progress Note Date: 01/31/18 Principal diagnosis: CAD and status post PCI This is a pleasant 67-year-old gentleman with no significant past medical history of diabetes or hypertension or dyslipidemia but significant history of smoking presented to the emergency room here at [facility] complaining of chest discomfort. 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 The discomfort was severe enough and the patient drove himself to the emergency room. In the ER the patient was diagnosed with acute anterior ST patient myocardial infarction. Subsequently he was taken emergently to the cardiac drop crew laborer where he underwent a heart catheterization and was found to have a plaque rupture involving the mid LAD with a lesion appears to be in the range of 80%. The patient underwent successful stenting of the LAD using a drug -eluting stent with a good angiographic results and without any complication from the procedure was performed from the right radial artery. By the end of the procedure the patient was pain-free. He did have some reperfusion changes throughout the procedure but he was maintaining normal sinus mechanism. On follow-up with the patient today, he denies having any chest pain or discomfort or shortness of breath. He does have good right radial pulse. The echocardiogram revealed mildly impaired LV function with an ejection fraction of 45%.he is on dual antiplatelet therapy along with high intensity statin. From the cardiovascular standpoint overview, the patient can be discharged home. Objective - Vital Signs Vital signs: Vital Signs Temp 98.4 F 01/31/18 08:00 Pulse 70 01/31/18 08:00 Resp 16 01/31/18 08:00 BP 131/84 01/31/18 08:00 Pulse Ox 96 01/31/18 08:00 Intake & Output 01/30/18 01/31/18 01/31/18 18:59 06:59 18:59 Intake Total 1340 400 400 Output Total 500 Balance 840 400 400 Weight 80 kg Intake: IV 20 Invasive Line 3 20 Oral 1320 400 400 Output: Urine 500 Other: Voiding Method Toilet Toilet # Voids 1 2 - Constitutional General appearance: Present: no acute distress - Respiratory Respiratory: bilateral: CTA - Cardiovascular Rhythm: regular Heart sounds: normal: S1, S2 - Labs CBC & Chem 7: 01/30/18 06:11 01/30/18 06:11 Assessment and Plan Assessment: Assessment #[address] patient myocardial infarction. #2 status post a stenting of the LAD using drug-eluting stent #3 significant history of smoking Plan #1 continue the current medical regimen which included dual antiplatelet therapy , high intensity statin, and anti-ischemic medication. #2 from a cardiovascular standpoint overview, the patient can be discharged home.
--- NOTE | 2018-01-31 13:04 | P.PN ---
Subjective Progress Note Date: 01/31/18 This is a pleasant 67-year-old gentleman who presented to the hospital with an ST elevation VT in the anterior region, he was taken to the cardiac catheterization lab where he underwent cardiac catheterization and was found to have plaque rupture involving the mid LAD with a lesion in the range of 80%, he underwent successful stenting of that artery by Dr. Marvin. An echocardiogram with Doppler study was performed which revealed an ejection fraction of 45%. Patient was seen and examined this morning, denies any chest pain or difficulty breathing. He states he's been up ambulating in the bean without any difficulty. Blood pressure 130/80 with a heart rate in the 70s, 96 % on room air. Objective - Vital Signs Vital signs: Vital Signs Temp 98.4 F 01/31/18 08:00 Pulse 70 01/31/18 08:00 Resp 16 01/31/18 08:00 BP 131/84 01/31/18 08:00 Pulse Ox 96 01/31/18 08:00 Intake & Output 01/30/18 01/31/18 01/31/18 18:59 06:59 18:59 Intake Total 1340 400 400 Output Total 500 Balance 840 400 400 Weight 80 kg Intake: IV 20 Invasive Line 3 20 Oral 1320 400 400 Output: Urine 500 Other: Voiding Method Toilet Toilet # Voids 1 2 - Exam PHYSICAL EXAMINATION: GENERAL: 67-year-old gentleman in no apparent distress at the time of my examination HEENT: Head is atraumatic, normocephalic. Pupils equal, round. Sclera anicteric. Conjunctiva are clear. Mucous membranes of the mouth are moist. Neck is supple. There is no elevated jugular venous pressure. No carotid bruit is heard. HEART EXAMINATION: Heart S1, S2 normal. No murmur or gallop heard. CHEST EXAMINATION: Lungs are clear to auscultation and precussion. No chest wall tenderness is noted on palpation or with deep breathing. ABDOMEN: Soft, nontender. Bowel sounds are heard. No organomegaly noted. EXTREMITIES: 2+ peripheral pulses with no evidence of peripheral edema and no calf tenderness noted. NEUROLOGIC patient is awake, alert and oriented X3. . - Labs CBC & Chem 7: 01/30/18 06:11 01/30/18 06:11 Assessment and Plan Plan: Assessment #[address] patient myocardial infarction. #2 status post a stenting of the LAD using drug-eluting stent #3 significant history of smoking Plan From cardiology's perspective, patient may be able to be discharged home today. We will make him a follow-up appointment to see Dr. Marvin in the office one week post discharge. Patient will be discharged home on dual antiplatelet therapy in the form of aspirin and Plavix, Lipitor 80 mg daily, Zestril 2-1/2 mg daily, Lopressor 25 mg one tablet by mouth twice a day, Habitrol patch, nitroglycerin when necessary for chest pain. DNP note has been reviewed, I agree with a documented findings and plan of care. Patient was seen and examined.
--- NOTE | 2018-01-31 13:57 | P.DS ---
Providers Date of admission: 01/29/18 09:28 Expected date of discharge: 01/31/18 Attending physician: Mike Gray Consults: 01/29/18 09:28 Consult Physician Urgent Consulting Provider: Edna Miles Consult Reason/Comments: stemi Do you want consulting provider notified?: Yes 01/29/18 09:29 Consult Physician Stat Consulting Provider: Manjinder Ledesma Consult Reason/Comments: STEMI ACTIVATION COMPLETE Do you want consulting provider notified?: Yes 01/29/18 10:30 Consult Physician Routine Consulting Provider: Cardiology Baltazar Consult Reason/Comments: Post Interventional patient Do you want consulting provider notified?: Already Contacted Primary care physician: Jerry Martines [facility] Course: This is a 67-year-old male patient who has been a patient of Dr. Martines in the past but most recently went to the clinic for care. He has no significant past medical history except for tobacco use and dependence. Patient states that he woke up and shortly after that developed chest pain that was pressure across his chest along with nausea vomiting and shortness of breath. He states he got in the car and drove himself here but had to stop for gas and was vomiting at the gas station. He came in to [facility] emergency center for evaluation was found to have an acute anterior ST elevated myocardial infarction. He subsequently went for heart catheterization with Dr. jaramillo that showed plaque rupture in the mid LAD and is status post stent placement. Echocardiogram is pending. Patient has been started on aspirin, Lipitor, Plavix, lisinopril and Lopressor. Patient is seen in the extended care unit awaiting a bed in the ICU. 01/30: Echocardiogram reveals EF of 45-50%, mild concentric left ventricular hypertrophy, apical hypokinesia, mild mitral regurgitation, trace tricuspid regurgitation, no pulmonary hypertension. Triglycerides 159, cholesterol 214, LDL 133, HDL 49. Patient states that he has been walking in the hallway without any chest pain, shortness of breath, lightheadedness or dizziness. 01/31: Patient denies any chest pain, shortness of breath. He has been ambulating with no lightheadedness or dizziness. Patient has been cleared for discharge by cardiology. Patient will be discharged home today in stable condition. Discharge diagnoses: 1. Acute anterior wall ST elevated myocardial infarction status post stenting of the LAD. 2. History of previous back surgery, stable. 3. Tobacco use and dependence. 4. Occasional marijuana use, stable. 5. Hypertension previously undiagnosed. 6. Hyperlipidemia. Discharge plan: Return home Impression and plan of care have been directed as dictated by the signing physician. Gissel Blackburn nurse practitioner acting as scribe for signing physician. Patient Condition at Discharge: Good Plan - Discharge Summary Discharge Rx Participant: No New Discharge Prescriptions: New Atorvastatin [Lipitor] 80 mg PO DAILY #30 tab Clopidogrel [Plavix] 75 mg PO DAILY #30 tab Lisinopril [Zestril] 2.5 mg PO DAILY #30 tab Metoprolol Tartrate [Lopressor] 25 mg PO BID #60 tab Nitroglycerin Sl Tabs [Nitrostat] 0.4 mg SUBLINGUAL Q5M PRN #25 tab PRN Reason: Chest Pain Continue Aspirin 81 mg PO DAILY No Action Multivitamin [Men's Multi-Vitamin] 1 tab PO DAILY Discharge Medication List Aspirin 81 mg PO DAILY 05/27/14 [History] Multivitamin [Men's Multi-Vitamin] 1 tab PO DAILY 05/27/14 [History] Atorvastatin [Lipitor] 80 mg PO DAILY #30 tab 01/31/18 [Rx] Clopidogrel [Plavix] 75 mg PO DAILY #30 tab 01/31/18 [Rx] Lisinopril [Zestril] 2.5 mg PO DAILY #30 tab 01/31/18 [Rx] Metoprolol Tartrate [Lopressor] 25 mg PO BID #60 tab 01/31/18 [Rx] Nitroglycerin Sl Tabs [Nitrostat] 0.4 mg SUBLINGUAL Q5M PRN #25 tab 01/31/18 [Rx ] Follow up Appointment(s)/Referral(s): Lamberto Mahoney MD [STAFF PHYSICIAN] - 02/10/18 11:30 am (Saturday) Yisel Lechuga MD [STAFF PHYSICIAN] - 1 Week (Pt requesting to make his own follow up appointment) Patient Instructions/Handouts: *Surgery [facility] - After Heart Catheterization - Internist Medical Doctor Md Instructions, How to Stop Smoking (DC), Heart Healthy Diet (DC) Discharge Disposition: HOME SELF-CARE
== END 2018-01-31 10:31 | disposition home or self-care (01) | DRG 247 ==
LOC: EC 09:13 → 6ICU 09:28 → 6SEL 16:29
PROVIDERS: ADMIT Internal Medicine Geriatric Medicine; ATTEND Internal Medicine Geriatric Medicine
PROC: B211YZZ Fluoroscopy of Multiple Coronary Arteries using Other Contrast (ICD-10-PCS; 2018-01-29)
PROC: 0270346 Dilation of Coronary Artery, One Artery, Bifurcation, with Drug-eluting Intraluminal Device, Percutaneous Approach (ICD-10-PCS; principal; 2018-01-29 09:30)
PROC: 4A023N7 Measurement of Cardiac Sampling and Pressure, Left Heart, Percutaneous Approach (ICD-10-PCS; 2018-01-29 09:30)
DX: I21.3 ST elevation (STEMI) myocardial infarction of unspecified site (principal); I11.9 Hypertensive heart disease without heart failure; E78.5 Hyperlipidemia, unspecified; I25.10 Atherosclerotic heart disease of native coronary artery without angina pectoris; I34.0 Nonrheumatic mitral (valve) insufficiency; F17.210 Nicotine dependence, cigarettes, uncomplicated; Z71.6 Tobacco abuse counseling; Z79.82 Long term (current) use of aspirin; Z79.899 Other long term (current) drug therapy; Z80.43 Family history of malignant neoplasm of testis; Z84.89 Family history of other specified conditions
CPT/HCPCS: 71045; 80053; 80061; 82550; 82553; 83690; 83735; 83880; 84484; 85025; 85610; 85730; 93306; 93458; 94760; 96365; 96372; 96375; 96376; 99291

== ENCOUNTER → 2019-02-12 | Outpatient (CLI) | payer MEDICARE, OTHER ==
[2019-02-12 08:16] LABS: HCT 48.7 % (39.0-53.0); HGB 15.9 gm/dL (13.0-17.5); MCHC 32.7 g/dL (31.0-37.0); MCV 94.6 fL (80.0-100.0); Platelet Count 233 k/uL (150-450); RBC 5.14 m/uL (4.30-5.90); RDW 13.2 % (11.5-15.5); WBC 9.6 k/uL (3.8-10.6)
[2019-02-12 11:29] LABS: African American GFR (CKD) 90.5 (60.0-200.0); Albumin 4.2 g/dL (3.80-4.90); Albumin/Globulin Ratio 2.1 (1.60-3.17); Calcium 9.6 mg/dL (8.7-10.3); Chol/HDL Ratio 2.65; LDL Cholesterol,Calculated 59.6 mg/dL (0.0-131.0); Non-African American GFR(CKD) 78.1 (60.0-200.0); Potassium 4.5 mmol/L (3.5-5.5); Total Bilirubin 0.6 mg/dL (0.2-1.2); Total Protein 6.2 g/dL (6.2-8.2); VLDL Calculation 19.4 mg/dL (5.00-40.00)
== END | disposition home or self-care (01) ==
LOC: LABWHC1 07:29
PROVIDERS: ATTEND Nurse Practitioner Adult Health
DX: E78.5 Hyperlipidemia, unspecified (principal); I10 Essential (primary) hypertension
CPT/HCPCS: 36415; 80053; 80061; 85027

== ENCOUNTER → 2020-09-23 | Outpatient (CLI) | payer MEDICARE, OTHER ==
[2020-09-23 19:11] LABS: Chol/HDL Ratio 2.88; LDL Cholesterol,Calculated 62.4 mg/dL (0.0-131.0); VLDL Calculation 18.6 mg/dL (5.00-40.00)
== END | disposition home or self-care (01) ==
LOC: LABWHC1 07:36
PROVIDERS: ATTEND Internal Medicine Interventional Cardiology
DX: E78.2 Mixed hyperlipidemia (principal)
CPT/HCPCS: 36415; 80061; 84450; 84460